=== PATIENT | female | born 1970 | race Caucasian/White ===

== ENCOUNTER 2018-07-11 21:01 | Emergency (ER) | payer BC ==
--- NOTE | 2018-07-11 21:36 | UC ---
Hypertension HPI - HPI Summary HPI Summary: 47-year-old woman comes in to clinic with a chief complaint of hypertension. She checked her blood pressure because she was anxious and did not feel well. She is having a very stressful relationship situation. She has had neck and head pain for the last 3 days. She says she quite often gets the neck pain. Her chiropractor adjusted her neck and the neck pain and the headache went away. Denies any chest pain or shortness of breath. No edema. She's not being treated for hypertension. - History of Current Complaint Chief Complaint: UCGeneralIllness Stated Complaint: HIGH BLOOD PRESSURE Time Seen by Provider: 07/11/18 21:15 Hx Last Menstrual Period: 1 WEEK AGO - Allergies/Home Medications Allergies/Adverse Reactions: Allergies Allergy/AdvReac Type Severity Reaction Status Date / Time Sulfa (Sulfonamide Allergy Severe Hives Verified 07/11/18 21:12 Antibiotics) Home Medications: Home Medications Aspirin TAB* [Aspirin 325 MG TAB*] 325 mg PO ONCE PRN 07/11/18 [History Confirmed 07/11/18] Homeopathic Supplements* 07/11/18 [History] Whole Food Supplements* 07/11/18 [History] PMH/Surg Hx/FS Hx/Imm Hx Previously Healthy: Yes - Surgical History Surgical History: Yes Surgery Procedure, Year, and Place: 2006, HAND SURGERY, ORAL SURGERY - Family History Known Family History: Positive: Cardiac Disease, Hypertension Negative: Diabetes - Social History Alcohol Use: Rare Substance Use Type: None Smoking Status (MU): Never Smoked Tobacco Review of Systems All Other Systems Reviewed And Are Negative: Yes Constitutional: Positive: Negative Skin: Positive: Negative Eyes: Positive: Negative ENT: Positive: Negative Respiratory: Positive: Negative Cardiovascular: Positive: Negative Gastrointestinal: Positive: Diarrhea Genitourinary: Positive: Negative Motor: Positive: Negative Neurovascular: Positive: Negative Musculoskeletal: Positive: Negative. Negative: Edema Neurological: Positive: Negative Psychological: Positive: Anxious Is Patient Immunocompromised?: No Physical Exam Triage Information Reviewed: Yes Appearance: Well-Appearing, No Pain Distress, Well-Nourished Vital Signs: Initial Vital Signs Temp 97.8 F 07/11/18 21:05 Pulse 83 07/11/18 21:05 Resp 16 07/11/18 21:05 BP 144/107 07/11/18 21:05 Pulse Ox 100 07/11/18 21:05 Vital Signs Reviewed: Yes Eye Exam: Normal Eyes: Positive: Conjunctiva Clear ENT: Positive: Pharynx normal, TMs normal Neck exam: Normal Neck: Positive: Supple Respiratory Exam: Normal Respiratory: Positive: Lungs clear, Normal breath sounds, No respiratory distress Cardiovascular Exam: Normal Cardiovascular: Positive: RRR Musculoskeletal Exam: Normal Musculoskeletal: Positive: Strength Intact, ROM Intact, No Edema Neurological Exam: Normal Neurological: Positive: Alert, Muscle Tone Normal Psychological: Positive: Normal Response To Family, Age Appropriate Behavior, Other: - ANXIOUS Skin Exam: Normal Diagnostics - EKG Cardiac Rate: NL - AT 21:34 Cardiac Rhythm: Sinus: Normal - 74BPM Ectopy: None ST Segment: Normal EKG Comparison: No Significant Change - FROM 10/23/2014 Hypertension Course/Dx - Course Course Of Treatment: EKG did not show any ectopy or ischemia. There was no change from prior EKG in 2014. Patient has no chest pain or shortness of breath. She has no headache or neck pain. Her recheck blood pressure is 138/ 98. The plan now is to have her follow up with her primary care doctor for reevaluation of her blood pressure. We discussed if she had any chest pain or headache or any other symptoms associated with high blood pressurE get immediate reevaluation in the emergency department. - Differential Dx/Diagnosis Provider Diagnoses: HYPERTENSION. ANXIETY Discharge - Sign-Out/Discharge Documenting (check all that apply): Patient Departure All imaging exams completed and their final reports reviewed: No Studies - Discharge Plan Condition: Stable Disposition: HOME Patient Education Materials: Hypertension (ED), Anxiety (ED) Referrals: Sameera Garcia MD [Primary Care Provider] - Additional Instructions: FOLLOW UP WITH YOUR DOCTOR IN THE NEXT 1-2 DAYS FOR REEVALUATION AND TO CHECK YOUR BLOOD PRESSURE. GET RECHECKED FOR ANY WORSENING OF YOUR CONDITION; CHEST PAIN, SHORTNESS OF BREATH, YOU FEEL ILL OR QUESTIONS OR CONCERNS. - Billing Disposition and Condition Condition: STABLE Disposition: Home
[2018-07-11 21:56] VITALS: BP 138/98
== END 2018-07-11 22:05 | disposition home or self-care (01) ==
LOC: UCEAST 21:01
DX: I10 Essential (primary) hypertension (principal); F41.9 Anxiety disorder, unspecified
CPT/HCPCS: 93005; 99211; G0463